=== PATIENT | female | born 1970 | race Two or more races ===

== ENCOUNTER 2021-08-26 09:12 | Emergency (ER) | payer OTHER ==
[~2021-08-26] VITALS: Ht 157.5 cm; Wt 74.8 kg
[2021-08-26 10:11] VITALS: BP 131/75
== END 2021-08-26 11:09 | disposition home or self-care (01) ==
LOC: ER 09:12
DX: Z20.822 Contact with and (suspected) exposure to COVID-19 (principal); Z87.891 Personal history of nicotine dependence
CPT/HCPCS: 36415